=== PATIENT | female | born 1950 | race American Indian/Alaskan Native ===

== ENCOUNTER 2018-06-14 17:20 | Emergency (ER) | payer MEDICARE, BC ==
[2018-06-14 17:31] VITALS: O2SAT 98
[2018-06-14] MEDS ORDERED: Sodium Chloride 0.9% 1,000 ML IV ONE (17:50)
--- NOTE | 2018-06-14 17:54 | C.PDOC ---
History Of Present Illness 67 y/o female comes in with 4 to 5 day history of abdominal pain, associated with nausea and diarrhea, nonbloody. Patient denies fever or vomiting. <Pancho Butler V - Last Filed: 06/14/18 18:27> History Per: Patient History/Exam Limitations: no limitations Onset/Duration Of Symptoms: Days Current Symptoms Are (Timing): Still Present <Pancho Butler V - Last Filed: 06/14/18 18:27> <Luiza Navarro - Last Filed: 06/14/18 20:17> Time Seen by Provider: 06/14/18 17:38 Chief Complaint (Nursing): Abdominal Pain Past Medical History Reviewed: Historical Data, Nursing Documentation, Vital Signs Vital Signs: Last Vital Signs Temp 98.1 F 06/14/18 17:28 Pulse 87 06/14/18 17:28 Resp 18 06/14/18 17:28 BP 122/73 06/14/18 17:28 Pulse Ox 98 06/14/18 17:28 - Medical History PMH: HTN Denies: Chronic Kidney Disease Family History: States: No Known Family Hx - Social History Hx Alcohol Use: No Hx Substance Use: No - Immunization History Hx Tetanus Toxoid Vaccination: No Hx Influenza Vaccination: No Hx Pneumococcal Vaccination: No <Pancho Butler V - Last Filed: 06/14/18 18:27> Vital Signs: Last Vital Signs Temp 98.1 F 06/14/18 19:23 Pulse 87 06/14/18 19:23 Resp 16 06/14/18 19:23 BP 147/80 06/14/18 19:23 Pulse Ox 98 06/14/18 19:23 <Luiza Navarro - Last Filed: 06/14/18 20:17> Review Of Systems Except As Marked, All Systems Reviewed And Found Negative. Constitutional: Negative for: Fever, Chills Cardiovascular: Negative for: Chest Pain Respiratory: Negative for: Shortness of Breath Gastrointestinal: Positive for: Nausea, Abdominal Pain, Diarrhea. Negative for: Vomiting Genitourinary: Negative for: Dysuria, Hematuria Musculoskeletal: Negative for: Back Pain <Pancho Butler V - Last Filed: 06/14/18 18:27> Physical Exam - Physical Exam Appears: Non-toxic, No Acute Distress Skin: Warm, Dry Head: Atraumatic, Normacephalic Eye(s): bilateral: Normal Inspection Oral Mucosa: Moist Neck: Supple Cardiovascular: Rhythm Regular, No Murmur Respiratory: Normal Breath Sounds, No Rales, No Rhonchi, No Wheezing Gastrointestinal/Abdominal: Soft, Tenderness (diffuse lower abdominal tenderness, mostly in LLQ), No Guarding, No Rebound Extremity: Bilateral: Atraumatic, Normal ROM Neurological/Psych: Oriented x3, Normal Speech <Pancho Butler V - Last Filed: 06/14/18 18:27> ED Course And Treatment - Laboratory Results Result Diagrams: 06/14/18 16:50 O2 Sat by Pulse Oximetry: 98 (RA) Pulse Ox Interpretation: Normal <Pancho Butler V - Last Filed: 06/14/18 18:27> - Laboratory Results Result Diagrams: 06/14/18 16:50 06/14/18 16:50 Lab Results: Total Bilirubin 0.5 mg/dL (0.2-1.3) 06/14/18 16:50 AST 23 U/L (14-36) 06/14/18 16:50 ALT 22 U/L (9-52) 06/14/18 16:50 Alkaline Phosphatase 82 U/L (38-126) 06/14/18 16:50 Total Protein 7.4 g/dL (6.3-8.3) 06/14/18 16:50 Albumin 4.5 g/dL (3.5-5.0) 06/14/18 16:50 Globulin 2.9 gm/dL (2.2-3.9) 06/14/18 16:50 Albumin/Globulin Ratio 1.5 (1.0-2.1) 06/14/18 16:50 Lipase 152 U/L (23-300) 06/14/18 16:50 Urine Color Yellow (YELLOW) 06/14/18 16:50 Urine Clarity Hazy (Clear) 06/14/18 16:50 Urine pH 5.0 (5.0-8.0) 06/14/18 16:50 Ur Specific [place] 1.025 (1.003-1.030) 06/14/18 16:50 Urine Protein 2+ mg/dL (NEGATIVE) H 06/14/18 16:50 Urine Glucose (UA) Normal mg/dL (Normal) 06/14/18 16:50 Urine Ketones Trace mg/dL (NEGATIVE) 06/14/18 16:50 Urine Blood Negative (NEGATIVE) 06/14/18 16:50 Urine Nitrate Negative (NEGATIVE) 06/14/18 16:50 Urine Bilirubin Negative (NEGATIVE) 06/14/18 16:50 Urine Urobilinogen Normal mg/dL (0.2-1.0) 06/14/18 16:50 Ur Leukocyte Esterase Trace Emeka/uL (Negative) 06/14/18 16:50 Urine WBC (Auto) 3 /hpf (0-5) 06/14/18 16:50 Urine RBC (Auto) 1 /hpf (0-3) 06/14/18 16:50 Ur Squamous Epith Cells < 1 /hpf (0-5) 06/14/18 16:50 Urine Bacteria Rare (<OCC) 06/14/18 16:50 Hyaline Casts 0-2 /lpf (0-2) 06/14/18 16:50 Pulse Ox Interpretation: Normal - CT Scan/US Abd/Pel CT Other Rad Studies (CT/US): Read By Radiologist, Radiology Report Reviewed CT/US Interpretation: FINDINGS: LUNG BASES: Mild scattered cetrilobular emphysema is present. Scarring is seen in the right middle lobe, lingula and lung bases. LIVER: Unremarkable. GALLBLADDER AND BILE DUCTS: The gallbladder appears within normal limits. No radioopaque gallstones are seen. No biliary ductal dilatation is evident. PANCREAS: Unremarkable. SPLEEN: Unremarkable. ADRENAL GLANDS: Unremarkable. KIDNEYS, URETERS, AND BLADDER: 1.5 x 1.0 cm solid lesion is present in the mid pole of the left kidney which measures neelam roximately 35 HU, may represent hemorrhagic versus proteinaceous cyst although small mass is not excluded. Further evaluation is recommended with CT urogram. STOMACH AND BOWEL: Thick walled fluid filled duodenum and loops of jejunum as well as ileum compatible with enteritis, most severely involving distal ileum with fat stranding noted. Infectious and inflammatory etiologies are considered. Consider consultation with GI service. APPENDIX: No evidence of acute appendicitis on CT examination. PERITONEUM: No free fluid. No free air. LYMPH NODES: No lymphadenopathy is evident. REPRODUCTIVE: Unremarkable as visualized. VASCULATURE: No evidence of abdominal aortic aneurysm. BONES: No aggressive appearing osseous lesion. No acute osseous pathology evident. MISCELLANEOUS: Moderate fat-containing umbilical hernia is noted. IMPRESSION: 1. Mild scattered cetrilobular emphysema is present. 2. Scarring is seen in the right middle lobe, lingula and lung bases. 3. 1.5 x 1.0 cm solid lesion is present in the mid pole of the left kidney as above. Further evaluation is recommended with CT urogram. 4. Enteritis, most severely involving distal ileum with fat stranding noted. Infectious and inflammatory etiologies are considered. Consider consultation with GI service. 5. Moderate fat-containing umbilical hernia is noted. Reevaluation Time: 20:15 Reassessment Condition: Improved <Luiza Navarro - Last Filed: 06/14/18 20:17> Medical Decision Making Medical Decision Making: Plan: --Abd/Pel CT --Labs --UA --IV fluids --Toradol 15 mg IVP --Zofran 4 mg PO <Pancho Butler V - Last Filed: 06/14/18 18:27> Disposition - Disposition Disposition Time: 19:00 <Pancho Butler V - Last Filed: 06/14/18 18:27> Counseled Patient/Family Regarding: Studies Performed, Diagnosis, Need For Followup, Rx Given <Luiza Navarro - Last Filed: 06/14/18 20:17> - Disposition Referrals: Trina Nagy DO [[facility]] - Disposition: HOME/ ROUTINE Condition: FAIR Additional Instructions: Please return if symptoms recur and follow up regarding the lesion seen on the left kidney Prescriptions: Metronidazole [Flagyl] 500 mg PO TID #21 tablet Instructions: Acute Abdomen (Belly Pain), Adult (DC) Forms: M/A-COM (Syrian) - Clinical Impression Clinical Impression: Abdominal pain, Enteritis, Lesion of left [place] kidney - Scribe Statement The provider has reviewed the documentation as recorded by the Ellen García Provider Attestation: All medical record entries made by the Tracieibroseann were at my direction and personally dictated by me. I have reviewed the chart and agree that the record accurately reflects my personal performance of the history, physical exam, medical decision making, and the department course for this patient. I have also personally directed, reviewed, and agree with the discharge instructions and disposition. <Pancho Butler V - Last Filed: 06/14/18 18:27> Physician Patient Turnover Patient Signed Over To: Luiza Navarro Handoff Comments: CT abdomen, labs, reevaluation <Pancho Butler V - Last Filed: 06/14/18 18:27>
[2018-06-14] MEDS ORDERED: Sodium Chloride 0.9% 1,000 ML ONE (17:56)
[2018-06-14 18:13] LABS: BASO % 0.5 % (0.0-2.0); EOS # 0.2 K/uL (0.0-0.7); EOS % 2.3 % (0.0-4.0); HEMOGLOBIN 11.7 g/dL (11.0-16.0); LYMPH # 3.1 K/uL (1.0-4.3); MEAN CELL VOLUME 74.7 fL (81.0-99.0); MEAN CORPUSCULAR HEMOGLOBIN 23.9 pg (27.0-31.0); MEAN PLATELET VOLUME 8.6 fL (7.2-11.7); MONO # 0.6 K/uL (0.0-0.8); NEUT # 5.2 K/uL (1.8-7.0); NEUT % 56.2 % (50.0-75.0); NRBC % 0.1 % (0.0-2.0); RBC 4.87 Mil/uL (3.80-5.20); RED CELL DISTRIBUTION WIDTH 16.1 % (11.5-14.5); WHITE BLOOD COUNT 9.2 K/uL (4.8-10.8)
[2018-06-14 18:22] LABS: SQUAMOUS EPITHIAL < 1 /hpf (0-5); URINE BACTERIA RARE (<OCC); URINE BILIRUBIN NEGATIVE (NEGATIVE); URINE BLOOD NEGATIVE (NEGATIVE); URINE CLARITY Hazy (Clear); URINE COLOR Yellow (YELLOW); URINE GLUCOSE (UA) NORMAL (Normal); URINE HYALINE CAST 0-2 /lpf (0-2); URINE LEUKOCYTE ESTERASE TRACE Leu/uL (Negative); URINE PROTEIN 2+ mg/dL (NEGATIVE); URINE UROBILINOGEN NORMAL mg/dL (0.2-1.0)
[2018-06-14 18:29] LABS: ALB/GLOB RATIO 1.5 (1.0-2.1); ALBUMIN 4.5 g/dL (3.5-5.0); ALT/SGPT 22 U/L (9-52); AST/SGOT 23 U/L (14-36); BLOOD UREA NITROGEN 16 mg/dL (7-17); GFR NON-AFRICAN AMERICAN > 60; LIPASE 152 U/L (23-300)
[2018-06-14] MEDS ORDERED: Iodixanol 320 MG/ML 100 ML BOTTLE IV ONE (18:59)
[2018-06-14 19:23] VITALS: RESP 16
[2018-06-14] MEDS ORDERED: Potassium Chloride 10 mEq ER Tab PO STA (20:18)
[2018-06-14] MEDS ORDERED: Potassium Chloride 20 mEq ER Tab PO ONE (20:25)
[2018-06-14 20:34] VITALS: BP 132/74; PULSE 16; TEMP 98.3
--- NOTE | 2018-06-15 10:07 | CT ---
CT abdomen and pelvis HISTORY: Abdominal pain. Comparison: None available. Technique: Multiple contiguous axial images were performed through the abdomen and pelvis with the use of intravenous contrast. Subsequently, sagittal and coronal reformatted images were obtained. This CT exam was performed using one or more of the following dose reduction techniques: Automated exposure control, adjustment of the mA and/or kV according to patient size, and/or use of iterative reconstruction technique. Findings: Dense linear consolidation seen within the inferior right middle lobe. Additional scattered areas of atelectasis seen within the lower lobes bilaterally. No pleural or pericardial effusion. Prominent liver. Contracted gallbladder. Spleen is preserved. Adrenal glands are preserved. Pancreas is preserved. Prominently thickened, dilated, enhancing bowel loops most prominently seen at the level of the distal ileum seen within the right ayden abdomen measuring up to 3.1 centimeters with adjacent fat stranding and fluid best demonstrated on series 3, images 66-97. This may be the sequelae of acute infectious and or inflammatory changes however acute ischemic changes cannot entirely be excluded. Clinical correlation. Developing small bowel obstruction can't be excluded. To the right of midline, there is a fat containing umbilical hernia with some mild fat stranding in the hernia. This measures up to 5.1 x 4.0 centimeters. Clinical correlation. Right kidney: Mild perinephric fat stranding. No gross calculi or hydronephrosis. Left Kidney: 1.7 centimeter low-attenuation lesion, partially exophytic off the midpole of the left kidney demonstrating a Hounsfield unit attenuation of 31, indeterminate. Further evaluation with multiphasic contrast enhanced CT or MR is recommended for further evaluation if clinically indicated. No calculi or hydronephrosis. Urinary bladder is preserved. Underdistended sigmoid colon. Fecal retention in the remainder of the colon. Appendix appears to be visualized, measuring up to 8 millimeters, upper limits of normal. No gross adjacent fat stranding or fluid. Clinical correlation. Atherosclerotic calcification plaque in the aorta. Few shotty para-aortic and inguinal lymph nodes. Few shotty mesenteric lymph nodes. Degenerative changes in the spine. Anterolisthesis of L4 on L5. Impression: 1. Prominently thickened, dilated, enhancing bowel loops most prominently seen at the level of the distal ileum seen within the right ayden abdomen measuring up to 3.1 centimeters with adjacent fat stranding and fluid best demonstrated on series 3, images 66-97. This may be the sequelae of acute infectious and or inflammatory changes however acute ischemic changes cannot entirely be excluded. Clinical correlation. Developing small bowel obstruction can't be excluded. 2. Appendix appears to be visualized, measuring up to 8 millimeters, upper limits of normal. No gross adjacent fat stranding or fluid. Clinical correlation. 3. To the right of midline, there is a fat containing umbilical hernia with some mild fat stranding in the hernia. This measures up to 5.1 x 4.0 centimeters. Clinical correlation. 4. 1.7 centimeter low-attenuation lesion, partially exophytic off the midpole of the left kidney demonstrating a Hounsfield unit attenuation of 31, indeterminate. Further evaluation with multiphasic contrast enhanced CT or MR is recommended for further evaluation if clinically indicated. 5. Dense linear consolidation seen within the inferior right middle lobe. Additional scattered areas of atelectasis seen within the lower lobes bilaterally. Additional findings as above. A preliminary report was generated at 8:01 p.m. on 06/14/[address] David Quinteros from [facility]. This case was placed in the PA review folder.
== END 2018-06-14 20:33 | disposition home or self-care (01) ==
LOC: C.ER 17:20
DX: K52.9 Noninfective gastroenteritis and colitis, unspecified (principal); N28.9 Disorder of kidney and ureter, unspecified; I10 Essential (primary) hypertension
CPT/HCPCS: 74177; 80053; 81001; 83690; 85025; 96361; 96374; 99285; J1885; J7030; Q9967